=== PATIENT | female | born 1965 | race Caucasian/White ===

== ENCOUNTER 2019-12-02 07:23 | Day surgery (SDC) | payer OTHER, SELFPAY ==
[~2019-12-02] VITALS: Ht 167.6 cm; Wt 81.6 kg
[2019-12-02] MEDS ORDERED: MELO7.5T11 PO (07:56)
[2019-12-02] MEDS ORDERED: MIDAZOLAM 2 MG/2 ML VIAL ONE ×2 (09:00)
[2019-12-02] MEDS ORDERED: diphenhydrAMINE 50 MG/ML VIAL ONE (09:00)
[2019-12-02] MEDS ORDERED: fentaNYL citrate 0.05 MG/ML VIAL ONE (09:00)
[2019-12-02] MEDS ORDERED: LIDOCAINE 2% 100 MG/5 ML UJET TP ONE (09:00)
[2019-12-02] MEDS ORDERED: MIDAZOLAM 2 MG/2 ML VIAL IVP ONE (09:55)
[2019-12-02] MEDS ORDERED: fentaNYL citrate 0.05 MG/ML VIAL IVP ONE (09:55)
== END 2019-12-02 10:50 | disposition home or self-care (01) ==
LOC: MDS 07:23 → MFCC 07:24 → MDS 10:50
PROVIDERS: ATTEND Internal Medicine Gastroenterology
DX: Z12.11 Encounter for screening for malignant neoplasm of colon (principal); K62.1 Rectal polyp; Z86.010 Personal history of colon polyps; Z98.890 Other specified postprocedural states; M19.90 Unspecified osteoarthritis, unspecified site; Z79.899 Other long term (current) drug therapy; Z88.1 Allergy status to other antibiotic agents; Z11.59 Encounter for screening for other viral diseases
CPT/HCPCS: 45380; 45385; J2250; J3010; U0003; J1200

== ENCOUNTER 2020-12-14 05:54 | Day surgery (SDC) | payer OTHER, SELFPAY ==
[~2020-12-14] VITALS: Ht 167.6 cm; Wt 81.6 kg
[~2020-12-14 05:54] MED LIST: MELO7.5T11 PO
[2020-12-14] MEDS ORDERED: fentaNYL citrate 0.05 MG/ML VIAL ONE (07:20)
[2020-12-14] MEDS ORDERED: MIDAZOLAM 5 MG/5 ML VIAL ONE (07:20)
[2020-12-14] MEDS ORDERED: diphenhydrAMINE 50 MG/ML VIAL ONE (07:20)
[2020-12-14] MEDS ORDERED: LIDOCAINE 2% 100 MG/5 ML UJET TP ONE (07:21)
[2020-12-14] MEDS ORDERED: MIDAZOLAM 2 MG/2 ML VIAL IVP ONE (08:15)
[2020-12-14] MEDS ORDERED: fentaNYL citrate 0.05 MG/ML VIAL IVP ONE (08:15)
== END 2020-12-14 08:55 | disposition home or self-care (01) ==
LOC: MDS 05:54 → MMU 05:56 → MDS 08:55
PROVIDERS: ATTEND Internal Medicine Gastroenterology
DX: Z12.11 Encounter for screening for malignant neoplasm of colon (principal); K63.5 Polyp of colon; Z86.010 Personal history of colon polyps; Z88.1 Allergy status to other antibiotic agents; M19.90 Unspecified osteoarthritis, unspecified site; Z20.822 Contact with and (suspected) exposure to COVID-19; Z79.899 Other long term (current) drug therapy
CPT/HCPCS: 45380; 45385; J2250; J3010; U0003; J1200